=== PATIENT | female | born 1965 | race Caucasian/White ===

== ENCOUNTER → 2017-04-25 | Outpatient (CLI) | payer SELFPAY | END | disposition home or self-care (01) | LOC: RAD.S 14:30 | DX: M79.662 Pain in left lower leg (principal); M25.472 Effusion, left ankle; M25.562 Pain in left knee; M79.89 Other specified soft tissue disorders; I80.299 Phlebitis and thrombophlebitis of other deep vessels of unspecified lower extremity ==